=== PATIENT | female | born 1970 | race Caucasian/White ===

== ENCOUNTER → 2018-02-11 | Outpatient (CLI) | payer OTHER ==
[2018-02-11 18:56] LABS: BASOPHILS % (AUTO) 0.9 %; EOSINOPHILS # (AUTO) 0.1 10^3/uL (0.0-0.7); EOSINOPHILS % (AUTO) 1.6 %; HGB - HEMOGLOBIN 13.7 g/dL (12.0-16.0); LYMPHOCYTES # (AUTO) 1.5 10^3/uL (1.5-3.5); LYMPHOCYTES % (AUTO) 29.2 %; MEAN CORPUSCULAR HEMOGLOBIN 30.1 pg (27.0-31.0); MEAN CORPUSCULAR HGB CONC 34.1 g/dL (32.0-36.0); MEAN CORPUSCULAR VOLUME 88.4 fL (81.0-99.0); MEAN PLATELET VOLUME 8.6 fL (7.9-10.8); MONOCYTES # (AUTO) 0.3 10^3/uL (0.0-1.0); MONOCYTES % (AUTO) 6.3 %; NEUTROPHILS # (AUTO) 3.3 10^3/uL (1.5-6.6); PLT - PLATELET COUNT 256 10^3/uL (130-450); RED BLOOD COUNT 4.56 10^6/uL (4.20-5.40); RED CELL DISTRIBUTION WIDTH 13.3 % (12.0-15.0); WHITE BLOOD COUNT 5.3 x10^3/uL (4.8-10.8)
[2018-02-11 19:40] LABS: ALBUMIN 4.3 g/dL (3.2-5.5); ALBUMIN/GLOBULIN RATIO 1.4 (1.0-2.2); ALKALINE PHOSPHATASE 59 IU/L (42-121); ALT ALANINE AMINOTRANSFERASE 13 IU/L (10-60); AST ASPARTATE AMINOTRANSFERASE 18 IU/L (10-42); BUN - BLOOD UREA NITROGEN 12 mg/dL (6-20); CALCIUM 9.4 mg/dL (8.5-10.3); CARBON DIOXIDE - CO2 28 mmol/L (21-32); CHLORIDE 105 mmol/L (101-111); CHOL/HDL RATIO 2.9 (<4.4); CHOLESTEROL 159 mg/dL; CREATININE 0.8 mg/dL (0.4-1.0); GFR - MDRD 77 (>89); GLUCOSE 94 mg/dL (70-100); HDL CHOLESTEROL 54 mg/dL; LDL CHOLESTEROL,CALCULATED 96 mg/dL; LDL/HDL RATIO 1.8 (<4.4); SODIUM 140 mmol/L (135-145); TOTAL PROTEIN 7.3 g/dL (6.7-8.2); VLDL CHOLESTEROL 9 mg/dL
[2018-02-11 19:51] LABS: HB2 TOTAL 14.3 g/dL; HEMOGLOBIN A1C 0.49 g/dL; HEMOGLOBIN A1C % 5.3 % (4.6-6.2)
== END ==
LOC: LAB.WCP 11:12
PROVIDERS: ATTEND Physician Assistant
DX: Z00.00 Encounter for general adult medical examination without abnormal findings (principal)
CPT/HCPCS: 36415; 80053; 80061; 83036; 83721; 84443; 85025

== ENCOUNTER 2018-03-18 11:21 | Outpatient (CLI) | payer OTHER ==
--- NOTE | 2018-03-31 11:16 | Mammography Report ---
Reason: SCREENING MAMMO Procedure Date: 03/18/2018 Accession Number: [id number] / [id number] Procedure: MUNDO - Screening Mammo Dig Bilat CPT Code: FULL RESULT: EXAM: Screening Mammo Dig Bilat DATE: 03/18/2018 11:44 AM CLINICAL HISTORY: 47-year-old female for screening. TECHNIQUE: Bilateral CC, laterally exaggerated CC, MLO views were obtained. COMPARISON: 12/27/2015. FINDINGS: The breasts demonstrate heterogeneously dense fibroglandular parenchyma bilaterally. No suspicious masses, clustered microcalcifications, or regions of architectural distortion are identified. IMPRESSION: Negative examination RECOMMENDATION: Routine annual screening unless otherwise clinically indicated. BIRADS CATEGORY 1: Negative STANDARD QUALIFYING STATEMENTS: 1. This examination was not reviewed with the aid of Computer-Aided Detection (CAD). 2. A negative or benign imaging report should not delay biopsy if clinically suspicious findings are present. Consider surgical consultation if warrented. More than 5% of cancers are not identified by imaging. 3. Dense breasts may obscure an underlying neoplasm. 4. This examination was reviewed without the aid of 3D breast imaging (tomosynthesis).
== END 2018-03-18 11:22 | disposition home or self-care (01) ==
LOC: DI 11:21
DX: Z12.31 Encounter for screening mammogram for malignant neoplasm of breast (principal)
CPT/HCPCS: 77067

== ENCOUNTER 2019-08-16 15:30 | Outpatient (CLI) | payer OTHER | END 2019-08-16 23:59 | disposition home or self-care (01) | LOC: LAB.R 15:30 | PROVIDERS: ATTEND Family Medicine | DX: R35.0 Frequency of micturition (principal) | CPT/HCPCS: 87086; 87181 ==

== ENCOUNTER 2020-12-16 16:08 | Outpatient (CLI) | payer OTHER ==
--- NOTE | 2020-12-17 09:05 | XRAY Report ---
PROCEDURE: Knee 3 View LT INDICATIONS: L KNEE PX TECHNIQUE: 3 views of the left knee(s) were acquired. COMPARISON: None. FINDINGS: Bones: No fractures or dislocations. Slight lateral subluxation of patella is seen. Mild medial fem oral tibial compartment and patellofemoral compartment osteoarthritic changes are seen. No suspicious bony lesions. Soft tissues: Small to moderate suprapatellar joint effusion is noted. No suspicious soft tissue gustavo cifications. IMPRESSION: Mild medial femoral tibial compartment and patellofemoral compartment osteoarthritis. Sm all to moderate suprapatellar joint effusion and slight lateral subluxation of patella. No fracture o r dislocation. Reviewed by: José Miguel Ahuja MD on 12/17/2020 9:03 AM PDT Approved by: José Miguel Ahuja MD on 12/17/2020 9:03 AM PDT Station ID: [id number]
== END 2020-12-16 23:59 | disposition home or self-care (01) ==
LOC: DI.N 16:08
PROVIDERS: ATTEND Family Medicine
DX: S83.012A Lateral subluxation of left patella, initial encounter (principal); M17.12 Unilateral primary osteoarthritis, left knee; M25.462 Effusion, left knee

== ENCOUNTER 2021-02-03 08:00 | Outpatient (CLI) | payer OTHER ==
[2021-02-03 18:05] LABS: BASOPHILS # (AUTO) 0.1 10^3/uL (0.0-0.1); BASOPHILS % (AUTO) 0.8 %; EOSINOPHILS # (AUTO) 0.1 10^3/uL (0.0-0.7); EOSINOPHILS % (AUTO) 1.5 %; HCT - HEMATOCRIT 40.5 % (37.0-47.0); HGB - HEMOGLOBIN 12.7 g/dL (12.0-16.0); LYMPHOCYTES # (AUTO) 2.2 10^3/uL (1.5-3.5); LYMPHOCYTES % (AUTO) 35.8 %; MEAN CORPUSCULAR HEMOGLOBIN 28.7 pg (27.0-31.0); MEAN CORPUSCULAR HGB CONC 31.4 g/dL (32.0-36.0); MEAN CORPUSCULAR VOLUME 91.6 fL (81.0-99.0); MEAN PLATELET VOLUME 10.3 fL (7.9-10.8); MONOCYTES # (AUTO) 0.4 10^3/uL (0.0-1.0); NEUTROPHILS # (AUTO) 3.3 10^3/uL (1.5-6.6); NEUTROPHILS % (AUTO) 54.7 %; PLT - PLATELET COUNT 254 10^3/uL (130-450); RED BLOOD COUNT 4.42 10^6/uL (4.20-5.40); RED CELL DISTRIBUTION WIDTH 12.9 % (12.0-15.0)
[2021-02-03 18:27] LABS: ALBUMIN 4.7 g/dL (3.2-5.5); ALBUMIN/GLOBULIN RATIO 1.8 (1.0-2.2); ALKALINE PHOSPHATASE 68 IU/L (42-121); ALT ALANINE AMINOTRANSFERASE 14 IU/L (10-60); AST ASPARTATE AMINOTRANSFERASE 18 IU/L (10-42); BILIRUBIN,TOTAL 0.7 mg/dL (0.2-1.0); BUN - BLOOD UREA NITROGEN 9 mg/dL (6-20); CALCIUM 9.9 mg/dL (8.5-10.3); CARBON DIOXIDE - CO2 29 mmol/L (21-32); CHLORIDE 104 mmol/L (101-111); CHOL/HDL RATIO 3.5 (<4.4); CHOLESTEROL 209 mg/dL; CREATININE 0.8 mg/dL (0.4-1.0); GFR - MDRD 76 (>89); GLUCOSE 96 mg/dL (70-100); HDL CHOLESTEROL 59 mg/dL; LDL CHOLESTEROL,CALCULATED 137 mg/dL; LDL/HDL RATIO 2.3 (<4.4); POTASSIUM 4.4 mmol/L (3.5-5.0); SODIUM 143 mmol/L (135-145); TOTAL PROTEIN 7.3 g/dL (6.7-8.2); TRIGLYCERIDES 64 mg/dL; VLDL CHOLESTEROL 13 mg/dL
[2021-02-03 18:28] LABS: THYROID STIMULATING HORMONE 3.2 uIU/mL (0.34-5.60)
== END 2021-02-03 23:59 | disposition home or self-care (01) ==
LOC: LAB.WCP 08:00
PROVIDERS: ATTEND Physician Assistant Medical
DX: Z00.00 Encounter for general adult medical examination without abnormal findings (principal)
CPT/HCPCS: 36415; 80053; 80061; 83721; 84443; 85025

== ENCOUNTER 2021-03-05 08:00 | Outpatient (CLI) | payer OTHER | END 2021-03-05 23:59 | disposition home or self-care (01) | LOC: LAB.N 08:00 | PROVIDERS: ATTEND Family Medicine | DX: R39.9 Unspecified symptoms and signs involving the genitourinary system (principal) | CPT/HCPCS: 87086 ==

== ENCOUNTER 2022-04-01 15:28 | Outpatient (CLI) | payer OTHER ==
--- NOTE | 2022-04-02 09:49 | Mammography Report ---
BILATERAL DIGITAL SCREENING MAMMOGRAM 3D/2D: 04/01/2022 CLINICAL: Routine screening. Comparison is made to exam dated: 03/18/2018 mammogram - [facility]. There are scattered areas of fibroglandular density in both breasts (category b / 25%-50% glandular t issue). No significant masses, calcifications, or other findings are seen in either breast. There has been no significant interval change. IMPRESSION: NEGATIVE There is no mammographic evidence of malignancy. A 1 year screening mammogram is recommended. Based on the Tyrer Cuzick model (a risk assessment model) the patients lifetime risk is 6.9% and her 10 year risk is 1.8%. According to the ACR, ACS, and NCCN guidelines, an annual breast MRI exam jasmina g with mammogram is recommended if the patients lifetime risk is 20% or greater. This exam was interpreted at Station ID: [id number]. NOTE: For mammograms, a report in lay terms will be sent to the patient. Approximately 15% of breast malignancies will not be visualized mammographically. In the management of a palpable breast mass, a negative mammogram must not discourage biopsy of a clinically suspicious lesion. Electronically Signed By: Luis Castillo M.D. aty/penrad:04/02/2022 08:12:18 ACR BI-RADS Category 1: Negative 3341F PARENCHYMAL PATTERN: (A) - The breast(s) demonstrate(s) scattered fibroglandular densities. BI-RADS CATEGORY: (1) - 1 RECOMMENDATION: (ANNUAL) - Recommend routine annual screening mammography. [id number] 1 year screening LATERALITY: (B)
== END 2022-04-01 15:29 | disposition home or self-care (01) ==
LOC: DI.N 15:28
DX: Z12.31 Encounter for screening mammogram for malignant neoplasm of breast (principal)

== ENCOUNTER 2022-08-07 07:45 | Outpatient (CLI) | payer OTHER | END 2022-08-07 08:00 | disposition home or self-care (01) | LOC: LAB.N 07:45 | PROVIDERS: ATTEND Family Medicine | DX: R30.0 Dysuria (principal) | CPT/HCPCS: 87086; 87181 ==

== ENCOUNTER 2023-02-05 14:23 | Outpatient (CLI) | payer OTHER | END 2023-02-05 14:24 | disposition home or self-care (01) | LOC: MAC.INF 14:23 | PROVIDERS: ATTEND Internal Medicine | DX: R00.2 Palpitations (principal) | CPT/HCPCS: 93246 ==

== ENCOUNTER 2023-06-08 15:38 | Outpatient (CLI) | payer OTHER ==
--- NOTE | 2023-06-09 12:13 | Mammography Report ---
BILATERAL DIGITAL SCREENING MAMMOGRAM 3D/2D: 06/08/2023 CLINICAL: Routine screening. Comparison is made to exams dated: 04/01/2022 mammogram and 03/18/2018 mammogram - [facility]. There are scattered areas of fibroglandular density in both breasts (category b / 25%-50% glandular t issue). No significant masses, calcifications, or other findings are seen in either breast. There has been no significant interval change. IMPRESSION: NEGATIVE There is no mammographic evidence of malignancy. A 1 year screening mammogram is recommended. Based on the Tyrer Cuzick model (a risk assessment model) the patients lifetime risk is 6.9% and her 10 year risk is 1.8%. According to the ACR, ACS, and NCCN guidelines, an annual breast MRI exam jasmina g with mammogram is recommended if the patients lifetime risk is 20% or greater. This exam was interpreted at Station ID: [id number]. NOTE: For mammograms, a report in lay terms will be sent to the patient. Approximately 15% of breast malignancies will not be visualized mammographically. In the management of a palpable breast mass, a negative mammogram must not discourage biopsy of a clinically suspicious lesion. Electronically Signed By: Marcela waller/faraz:06/09/2023 09:59:25 letter sent: No_Letter ACR BI-RADS Category 1: Negative 3341F PARENCHYMAL PATTERN: (A) - The breast(s) demonstrate(s) scattered fibroglandular densities. BI-RADS CATEGORY: (1) - 1 Mammogram [id number] 1 year screening LATERALITY: (B)
== END 2023-06-08 15:39 | disposition home or self-care (01) ==
LOC: DI.N 15:38
PROVIDERS: ATTEND Internal Medicine
DX: Z12.31 Encounter for screening mammogram for malignant neoplasm of breast (principal); R92.323 Mammographic fibroglandular density, bilateral breasts

== ENCOUNTER 2023-07-26 08:00 | Outpatient (CLI) | payer OTHER | END 2023-07-26 23:59 | disposition home or self-care (01) | LOC: LAB.N 08:00 | PROVIDERS: ATTEND Family Medicine | DX: N39.0 Urinary tract infection, site not specified (principal) | CPT/HCPCS: 87086; 87181 ==

== ENCOUNTER 2023-11-04 07:27 | Outpatient (CLI) | payer OTHER ==
[2023-11-04 12:11] LABS: BASOPHILS # (AUTO) 0.1 10^3/uL (0.0-0.1); BASOPHILS % (AUTO) 0.8 %; EOSINOPHILS # (AUTO) 0.1 10^3/uL (0.0-0.7); EOSINOPHILS % (AUTO) 1.3 %; HCT - HEMATOCRIT 41.7 % (37.0-47.0); HGB - HEMOGLOBIN 13.5 g/dL (12.0-16.0); LYMPHOCYTES # (AUTO) 1.7 10^3/uL (1.5-3.5); LYMPHOCYTES % (AUTO) 26.4 %; MEAN CORPUSCULAR HEMOGLOBIN 29.4 pg (27.0-31.0); MEAN CORPUSCULAR HGB CONC 32.4 g/dL (32.0-36.0); MEAN CORPUSCULAR VOLUME 90.8 fL (81.0-99.0); MEAN PLATELET VOLUME 9.8 fL (7.9-10.8); MONOCYTES # (AUTO) 0.5 10^3/uL (0.0-1.0); MONOCYTES % (AUTO) 7.2 %; NEUTROPHILS # (AUTO) 4.1 10^3/uL (1.5-6.6); PLT - PLATELET COUNT 301 10^3/uL (130-450); RED BLOOD COUNT 4.59 10^6/uL (4.20-5.40); RED CELL DISTRIBUTION WIDTH 13.1 % (12.0-15.0); WHITE BLOOD COUNT 6.4 x10^3/uL (4.8-10.8)
[2023-11-04 12:36] LABS: ALBUMIN 4.5 g/dL (3.2-5.5); ALBUMIN/GLOBULIN RATIO 1.6 (1.0-2.2); ALKALINE PHOSPHATASE 82 IU/L (42-121); ALT ALANINE AMINOTRANSFERASE 13 IU/L (10-60); AST ASPARTATE AMINOTRANSFERASE 16 IU/L (10-42); BILIRUBIN,TOTAL 0.6 mg/dL (0.2-1.0); BUN - BLOOD UREA NITROGEN 14 mg/dL (6-20); CALCIUM 10.2 mg/dL (8.5-10.3); CARBON DIOXIDE - CO2 31 mmol/L (21-32); CHLORIDE 102 mmol/L (101-111); CHOL/HDL RATIO 3.9 (<4.4); CHOLESTEROL 217 mg/dL; CREATININE 0.8 mg/dL (0.6-1.3); GFR - MDRD 75 (>89); GLUCOSE 95 mg/dL (74-104); HDL CHOLESTEROL 56 mg/dL; LDL CHOLESTEROL,CALCULATED 147 mg/dL; LDL/HDL RATIO 2.6 (<4.4); POTASSIUM 4.1 mmol/L (3.5-4.5); SODIUM 139 mmol/L (135-145); TOTAL PROTEIN 7.4 g/dL (6.4-8.9); TRIGLYCERIDES 71 mg/dL (48-352); VLDL CHOLESTEROL 14 mg/dL
== END 2023-11-04 07:28 | disposition home or self-care (01) ==
LOC: LAB.N 07:27
PROVIDERS: ATTEND Internal Medicine
DX: K58.1 Irritable bowel syndrome with constipation (principal); Z13.220 Encounter for screening for lipoid disorders
CPT/HCPCS: 36415; 80053; 80061; 83721; 85025

== ENCOUNTER 2024-01-19 08:00 | Outpatient (CLI) | payer OTHER ==
[2024-01-19 18:24] LABS: BILIRUBIN,URINE NEGATIVE (NEGATIVE); GLUCOSE, URINE (UA) NEGATIVE (NEGATIVE); KETONES,URINE (UA) NEGATIVE (NEGATIVE); LEUKOCYTE ESTERASE, URINE NEGATIVE (NEGATIVE); NITRITE,URINE POSITIVE (NEGATIVE); OCCULT BLOOD,URINE TRACE-LYSE (NEGATIVE); PH,URINE 5.5 PH (5.0-7.5); PROTEIN,URINE NEGATIVE (NEGATIVE); UROBILINOGEN,URINE 0.2 (NORMAL) E.U./dL (NORMAL)
[2024-01-19 18:41] LABS: BACTERIA,URINE Many /HPF (None Seen); CLARITY,URINE HAZY (CLEAR); RBC,URINE 0-5 /HPF (0-5); SQUAMOUS EPITHELIAL CELL,UR RARE Squamous (<= Few)
[2024-01-19 18:42] LABS: CRYSTALS,URINE 11-25 Ca Oxalate /LPF
== END 2024-01-19 23:59 | disposition home or self-care (01) ==
LOC: LAB.WCP 08:00
PROVIDERS: ATTEND Family Medicine
DX: R30.0 Dysuria (principal)
CPT/HCPCS: 81001; 87086; 87181

== ENCOUNTER 2024-01-20 15:16 | Outpatient (CLI) | payer OTHER ==
--- NOTE | 2024-01-20 17:21 | XRAY Report ---
PROCEDURE: Knee 3V LT INDICATIONS: LEFT KNEE PAIN TECHNIQUE: 3 views of the knee(s) were acquired. COMPARISON: 12/16/2020. FINDINGS: Bones: No fractures or dislocations. Mild tricompartmental osteoarthritis is seen with joint space narrowing and subchondral sclerosis. No significant patellar subluxation. No suspicious bony lesions. Soft tissues: No knee joint effusion. No suspicious soft tissue calcifications or masses. IMPRESSION: No left knee fracture or dislocation. Mild tricompartmental osteoarthritis. No significant joint effu jossue. Reviewed by: José Miguel Ahuja MD on 01/20/2024 5:20 PM PDT Approved by: José Miguel Ahuja MD on 01/20/2024 5:20 PM PDT Station ID: [id number]
--- NOTE | 2024-01-20 17:22 | XRAY Report ---
PROCEDURE: Chest 2V INDICATIONS: RIB PAIN TECHNIQUE: 2 views of the chest were acquired. COMPARISON: None. FINDINGS: Surgical changes and devices: None. Lungs and pleura: No pleural effusions or pneumothorax. Lungs are clear. Mediastinum: Mediastinal contours appear normal. Heart size is normal. Bones and chest wall: No suspicious bony lesions. Overlying soft tissues appear unremarkable. IMPRESSION: No acute cardiopulmonary process. Reviewed by: José Miguel Ahuja MD on 01/20/2024 5:20 PM PDT Approved by: José Miguel Ahuja MD on 01/20/2024 5:20 PM PDT Station ID: [id number]
== END 2024-01-20 15:17 | disposition home or self-care (01) ==
LOC: DI 15:16
PROVIDERS: ATTEND Family Medicine
DX: M17.12 Unilateral primary osteoarthritis, left knee (principal); R07.81 Pleurodynia

== ENCOUNTER 2024-02-17 06:38 | Day surgery (SDC) | payer OTHER ==
[2024-02-17] MEDS: CYCLOPENTOLATE 1% OPHTH DROPS 2 ML ONE (06:52)
[2024-02-17] MEDS: KETOROLAC TROMETHAMINE 0.5% OPHTH DROPS 5 ML ONE (06:52)
[2024-02-17] MEDS: PHENYLEPHRINE 2.5% OPHTH 2 ML DROPS ONE (06:52)
[2024-02-17] MEDS: PROPARACAINE 0.5% OPHTH DROPS 15 ML ONE (06:52)
[2024-02-17 07:02] LABS: HCG UR QUAL NEGATIVE
[2024-02-17] MEDS: LACTATED RINGERS 1,000 ML IV ONE (07:10)
--- NOTE | 2024-02-17 07:13 | ANESTHESIA ---
Pre-Anesthesia VS, & Labs Height: 5 ft 10 in Weight (kg): 85.6 kg Body Mass Index: 27.1 BMI Classification: Overweight - NPO >8 hours - Is Patient ?: No - Lab Results Lab results reviewed: Yes <Yang Smith - Last Filed: 02/17/24 07:11> - NPO >8 hours - Is Patient ?: No - Lab Results Lab results reviewed: Yes <Capo Zimmerman - Last Filed: 02/17/24 07:43> - Diagnosis R eye cataract (Yang Smith) - Procedure R extraction cataract with IOL (Yang Smith) Vital Signs: Temp Pulse Resp BP Pulse Ox O2 Flow Rate 36.6 C 45 L 18 103/58 L 100 02/17/24 06:53 02/17/24 06:53 02/17/24 06:53 02/17/24 06:53 02/17/24 06:53 Home Medications and Allergies <Yang Smith - Last Filed: 02/17/24 07:11> <Capo Zimmerman - Last Filed: 02/17/24 07:43> Home Medications: Ambulatory Orders Latanoprost 0.005% Ophth Drops [Xalatan Ophth Drops] 1 drops EACHEYE DAILY 02/16/24 Timolol 0.5% Ophth Drops [Timoptic 0.5% Ophth Drops] 1 drops EACHEYE DAILY 02/16/24 Latanoprost 0.005% Ophth Drops [Xalatan Ophth Drops] 1 drops EACHEYE DAILY 02/16/24 Timolol 0.5% Ophth Drops [Timoptic 0.5% Ophth Drops] 1 drops EACHEYE DAILY 02/16/24 Allergies/Adverse Reactions: Allergies Allergy/AdvReac Type Severity Reaction Status Date / Time No Known Drug Allergies Allergy Verified 02/17/24 07:09 Anes History & Medical History - Anesthetic History Anesthesia Complications: reports: No previous complications - Medical History Cardiovascular: reports: None Pulmonary: reports: Pneumonia Gastrointestinal: reports: None Urinary: reports: None Musculoskeletal: reports: None Endocrine/Autoimmune: reports: None Skin: reports: None - Surgical History Eyes Ears Nose Throat (EENT): reports: Tonsil/Adenoidectomy <Yang Smith - Last Filed: 02/17/24 07:11> - Anesthetic History Anesthesia Complications: reports: No previous complications - Medical History Cardiovascular: reports: None Pulmonary: reports: None Gastrointestinal: reports: None Urinary: reports: None Musculoskeletal: reports: None Endocrine/Autoimmune: reports: None Skin: reports: None Smoking Status: Never smoker Psychosocial: reports: No issues indicated - Surgical History Eyes Ears Nose Throat (EENT): reports: Tonsil/Adenoidectomy <Capo Zimmerman - Last Filed: 02/17/24 07:43> Results - EKG Results EKG Comparison: Reviewed EKG <Capo Zimmerman - Last Filed: 02/17/24 07:43> Exam General: Alert, Oriented x3 Dental: WNL Mouth Openin Fingerbreadth Neck Mobility: Normal Mallampati classification: II Thyromental Distance: 4-6 cm <Capo Zimmerman - Last Filed: 02/17/24 07:43> Plan Anesthesia Type: MAC Consent for Procedure(s) Verified and Reviewed: Yes Code Status: Attempt Resuscitation <Yang Smith - Last Filed: 02/17/24 07:11> Anesthesia Type: MAC Consent for Procedure(s) Verified and Reviewed: Yes Code Status: Attempt Resuscitation ASA classification: 1-Healthy patient Is this case an emergency?: No <Capo Zimmerman - Last Filed: 02/17/24 07:43>
[2024-02-17] MEDS ORDERED: MIDAZOLAM 2 MG/2 ML VIAL ONE (07:30)
[2024-02-17] MEDS ORDERED: EPINEPHrine 1 MG/ML AMP ONE (07:48)
[2024-02-17] MEDS ORDERED: BSS/LIDOCAINE/EPINEPHRINE 1 ML VIAL ONE (07:49)
[2024-02-17] MEDS ORDERED: TRIAMCIN/MOXIFLOX OPHTHALMIC 0.6 ML VIAL IO ONE (07:49)
[2024-02-17] MEDS ORDERED: TIMOLOL 0.5% OPHTH DROPS ONE (07:49)
[2024-02-17] MEDS ORDERED: BRIMONIDINE 0.2% OPHTH DROPS 5 ML ONE (07:49)
[2024-02-17] MEDS: BRIMONIDINE 0.2% OPHTH DROPS 5 ML OPTH ONE (08:16)
[2024-02-17] MEDS: EPINEPHrine 1 MG/ML AMP IR ONE (08:16)
[2024-02-17] MEDS: TIMOLOL 0.5% OPHTH DROPS OPTH ONE (08:17)
[2024-02-17] MEDS: BSS/LIDOCAINE/EPINEPHRINE 1 ML SYRINGE IO ONE (08:18)
[2024-02-17] MEDS: TRIAMCIN/MOXIFLOX OPHTHALMIC 0.6 ML VIAL IO ONE (08:18)
[2024-02-17] MEDS: VANCOMYCIN OPHTH (TOPICAL) 10 MG/ML SYRINGE TOP ONE (08:18)
[2024-02-17] MEDS: PROPARACAINE 0.5% OPHTH DROPS 15 ML RIGHTEYE ONE (08:18)
[2024-02-17] MEDS: LACTATED RINGERS 650 ML IV ONE (08:48)
--- NOTE | 2024-02-17 09:04 | OPERATIVE REPORT ---
Operative Report - Other Other Information/Narrative: Date of Surgery: 02/17/24 Preop Dx: Complex, visually significant cataract right eye. Complex due to explantation of the Intraocular Collamer Lens (ICL) from behind the iris before reomving the crystalline lens. . This was the first cataract surgery. Postop Dx: Same Procedure: Phacoemulsification with posterior chamber intraocular lens implant right eye Surgeon: Dr. Swapnil Chapman Anesthesia: Monitored anesthesia care Complications: None Operative Indications: This is a 53-year-old F with progressive vision loss in the right eye due to 2+ nuclear sclerotic, 1+ cortical, 1+ posterior subcapsular, and vacuolar cataract. Best corrected visual acuity was 20/80 with glare to 20/300 vision in the right eye. Indications for surgery were: - Overall decrease in vision - Difficulty seeing words on a computer screen - Difficulty reading - Difficulty seeing words, closed captions, or game scores on TV - Difficulty seeing street signs - Difficulty driving in low light or at night - Difficulty driving at night because of headlights from other vehicles - Difficulty with glare or bright lights in any situation The patient was consented at length concerning the risks and benefits of cataract surgery after which the patient expressed a desire to proceed with surgery. Operative Procedure: The patient was taken into OR#3 and placed under monitored anesthesia care. A surgical time-out was conducted confirming correct patient, correct procedure, and correct surgical site. The patient was given topical anesthesia and then prepped and draped in the usual sterile fashion. The eye was entered at the 6 and 3 oclock positions. Intracameral Shugarcaine was inj ected into the anterior chamber followed by a dispersive viscoelastic. The previously implanted ICL was explanted by prolapsing it throught the pupil using a small muscle hook followed by grasping it with MST micrograspers and pulling it through the pahco wound. A partially continuous-tear curvilinear capsulorhexis was performed. The nucleus was hydrodissected and phacoemulsified. The cortex was evacuated using automated infusion and aspiration. A cohesive viscoelastic was injected into the capsular bag and a 17.0 diopter intraocular lens was inserted into the bag. Infusion and aspiration were used to evacuate the viscoelastic materials from the eye. The wounds were hydrated and the eye inflated to physiologic pressure using balanced salt solution. Approximately 0.25ml of a mixture of triamcinolone and moxifloxacin was injected trans- sclerally into the vitreous in the inferotemporal quadrant using a 30 gauge cannula. An additional 0.25ml of a mixture of triamcinolone and moxifloxacin was injected subconjunctivally in the superior quadrant for infection and inflammation prophylaxis. Wound integrity was checked with Weck-Manisha sponges. The patient was taken from the operating room in good condition and given post- op instructions.
[2024-02-17 09:12] VITALS: BP 118/47; O2SAT 99
--- NOTE | 2024-02-17 09:29 | ANESTHESIA POST OP EVALUATION ---
Anesthesia Post Eval - Post Anesthesia Eval Vitals: Last Vital Signs Temp 36.5 C 02/17/24 09:06 Pulse 72 02/17/24 09:06 Resp 16 02/17/24 09:06 BP 118/47 L 02/17/24 09:06 Pulse Ox 99 02/17/24 09:06 O2 Flow Rate CV Function Including HR & BP: Stable Pain Control: Satisfactory Nausea & Vomiting: Negative Mental Status: Baseline Respiratory Status: Airway Patent Hydration Status: Satisfactory Anesthesia Complications: None
== END 2024-02-17 06:39 | disposition home or self-care (01) ==
LOC: SDS 06:38
PROVIDERS: ATTEND Ophthalmology
DX: H25.811 Combined forms of age-related cataract, right eye (principal); Z32.02 Encounter for pregnancy test, result negative
CPT/HCPCS: 66986; 81025; A9270; J3490; J7120